=== PATIENT | female | born 1945 | race Caucasian/White ===

== ENCOUNTER 2025-10-26 06:44 | Emergency (ER) | payer MEDICARE, OTHER, SELFPAY ==
[2025-10-26 07:00] VITALS: BP 171/61
[2025-10-26 08:00] VITALS: BP 147/59
[2025-10-26 08:16] VITALS: BP 147/59
--- NOTE | 2025-10-26 08:35 | ED.GENMED ---
History of Present Illness
General
Chief Complaint: Fall
Source: family and detention
Exam Limitations: non verbal-adult and dementia
Time Seen by Provider: 10/26/25 07:57
Nursing documentation reviewed up to this point in time: agreed with
History of Present Illness
History of Present Illness:
Patient is a 80-year-old female with history of dementia, hypertension, hyperlipidemia who presents to the emergency department from nursing facility for evaluation following a fall this morning. Patient suffers from dementia, is essentially
nonverbal and is unable to contribute to history. Patient's daughter is present at bedside who states that her nursing facility, [facility], contacted her this morning stating that her mom suffered a fall. Apparently she was ambulating in
her bedroom using her walker when the walker hit a cart and patient fell backward striking her head on the ground. There was no reported loss of consciousness. They did however note a small abrasion/laceration to her posterior scalp.
They state the patient is at her baseline mental status. Patient is not on any oral anticoagulation.
Past History
Past History
ED Past Medical History: HTN, Hypercholesterolemia and Other (dementia)
Social History
Tobacco: Non-smoker
Alcohol: None
Living: detention
Review of Systems
Review of Systems
Allergies reviewed?: Yes
All Other Systems: ROS reviewed and negative except as documented in HPI and ROS
Phy Exam
Physical Exam
Physical Exam:
Vitals: Hypertensive, otherwise vital signs stable.
General: Patient appears in no distress.
Skin: Warm and dry, no rashes or lesions
Head: Normocephalic, minor abrasion to posterior scalp
Eyes: Sclera nonicteric.
Throat: Protecting airway
Neck: No cervical spine tenderness
Cardiac: Regular rate and rhythm, no murmurs.
Pulm: Normal respiratory effort. Lungs clear bilaterally
Abdomen: Nondistended. Soft and nontender
Extremities: No obvious deformities or traumatic injuries of bilateral upper or lower extremities. No specific areas of bony tenderness. Upper and lower extremities neurovascularly intact
Neuro: Alert. Nonverbal. Does not follow commands (which is her baseline)
Psychiatric: Normal affect.
Course
Orders/Labs/Results
Orders:
Orders
10/26/25 08:11
CT Head W/o Iv Contrast Urgent
Comment:
Reason For Exam: unwitnessed fall
Cervical Spine wo Contrast CT [CT Cervical Spine W/o Iv Contr] Urgent
Comment:
Reason For Exam: unwitnessed fall
Vital Signs
Initial and Last Documented VS:
Initial Vital Signs
Temp Pulse Resp BP Pulse Ox
97.5 F 60 15 171/61 94
10/26/25 07:00 10/26/25 07:00 10/26/25 07:00 10/26/25 07:00 10/26/25 07:00
Last Documented Vital Signs
Temp Pulse Resp BP Pulse Ox
97.5 F 65 16 150/79 94
10/26/25 07:00 10/26/25 09:30 10/26/25 09:30 10/26/25 09:30 10/26/25 08:40
MDM/Problems Addressed
Differential Diagnosis Includes:
Not limited to: Contusion, concussion, brain bleed, cervical spine fracture, etc.
MDM/Problems Addressed:
80-year-old female presenting from memory care unit after witnessed mechanical fall with head strike this morning. No LOC. No oral anticoagulation.
Vitals and exam as above.
Patient alert, however, does not respond verbally other than intermittent mumbles, which is her baseline. She does not follow commands. Very minor contusion noted to posterior scalp without any other evidence of traumatic injuries.
CT head and cervical spine without evidence of acute traumatic injuries. We were able to get patient up and ambulating with walker � which is her baseline. She was able to bear weight and does not appear to be in any pain or discomfort. She is
smiling in bed.
Will discharge back to facility with return precautions.
Patients daughter present at bedside confirming her baseline status and comfortable with plan.
Chronic conditions affecting care:
Dementia, hypertension
Acute Exacerbation and/or Progression of Chronic Illness:
N/A
*Radiology
Radiology exam reviewed: radiology read reviewed
*Pulse Oximetry
SaO2: 94
Oxygen Mode of Delivery: Room air
Patient hypoxic: no
*EKG
Interpreted by ED Provider?: NA
*Marketing Campaign Analyst Interpretation
Rate: Marketing Campaign Analyst- N/A
*Critical Care Note
Total Time (30-74mins, 75-104mins- exclusive of procedures): Not Applicable
ED Attending Note
-
Portions of this chart may have been created with voice recognition software.� Occasional wrong word or��sound alike� substitutions may have occurred due to the inherent limitations of voice recognition software.
Discharge Plan
Departure
Patient Disposition: Home (Routine Discharge)
Date of Disposition: 10/26/25
Time of Disposition: 09:58
Patient with high blood pressure during this ER visit?: Yes
Discharge Problem:
Fall, Head injury
Instructions: Head Injury in Adults (DC), Preventing falls in adults, BLOOD PRESSURE
Prescriptions:
No Action
donepezil 10 mg Tablet
20 mg PO HS
levothyroxine 75 mcg Tablet
75 mcg PO DAILY
losartan 100 mg Tablet
100 mg PO DAILY
risperidone 0.5 mg Tablet
0.5 mg PO BID
escitalopram oxalate 20 mg Tablet
20 mg PO DAILY
ezetimibe 10 mg Tablet
10 mg PO DAILY
acetaminophen 325 mg Capsule
650 mg PO BID
loratadine 10 mg Capsule
10 mg PO DAILY
Referrals:
Amish Braswell MD [Family Provider, Family Practice] - Follow up in 5-7 days
Activity Restrictions/Additional Instructions:
RETURN TO THE EMERGENCY DEPARTMENT WITH ANY FEVER, SEVERE HEADACHE/NECK PAIN, MENTAL STATUS CHANGES, WEAKNESS, INABILITY TO AMBULATE, WORSENING CURRENT SYMPTOMS, OR ANY OTHER CONCERNS
- As discussed, the imaging of your head and cervical spine showed no evidence of acute traumatic injuries. You were able to ambulate with assistance of a walker while in the emergency department.
- You can take Tylenol for pain.
- Follow-up with primary care for further evaluation/management to ensure that your symptoms are improving
Monitor your symptoms closely and return to the emergency department with any acute worsening/new symptoms or any other concerns
Interventions
Interventions:
*General Assessment Last Done: 10/26/25 07:08
*Neglect/Abuse Screening Last Done: 10/26/25 07:04
*ED COVID-19 Vaccine History Last Done: 10/26/25 07:08
*ED Influenza Vaccine History Last Done: 10/26/25 07:08
[facility] Risk Assessment Tool Last Done: 10/26/25 07:07
*Nursing Disposition Last Done: 10/26/25 12:20
ED-Musculoskeletal Assessment Last Done: 10/26/25 07:08
ED- Neurological Assessment Last Done: 10/26/25 07:08
ED-Skin Assessment Last Done: 10/26/25 10:00
Discharge Date and Time
Discharge Date/Time: 10/26/25 12:22
Print Language: GEORGIAN
[2025-10-26 09:30] VITALS: BP 150/79
== END 2025-10-26 12:22 | disposition home or self-care (01) ==
LOC: EMR 06:44
PROVIDERS: EMERGENCY PHYSICIAN Emergency Medicine; FAMILY PHYSICIAN Family Medicine
DX: S00.01XA Abrasion of scalp, initial encounter (principal); S00.03XA Contusion of scalp, initial encounter; W01.10XA Fall on same level from slipping, tripping and stumbling with subsequent striking against unspecified object, initial encounter; Y93.01 Activity, walking, marching and hiking; Y92.003 Bedroom of unspecified non-institutional (private) residence as the place of occurrence of the external cause; F03.90 Unspecified dementia, unspecified severity, without behavioral disturbance, psychotic disturbance, mood disturbance, and anxiety; I10 Essential (primary) hypertension; E78.00 Pure hypercholesterolemia, unspecified
CPT/HCPCS: 99284; 70450; 72125